=== PATIENT | female | born 1970 | race African-American/Black ===

== ENCOUNTER 2018-07-15 13:41 | Inpatient (IN) | payer BC ==
[~2018-07-15] VITALS: Ht 162.6 cm; Wt 95.0 kg
[2018-07-15 15:32] LABS: Basophils # (auto) 0 uL; Basophils % (auto) 0.4 % (0.0-2.0); Eosinophils # (auto) 0 uL; Eosinophils % (auto) 0.1 % (0.0-7.0); Hematocrit 45.6 % (36.0-46.0); Hemoglobin 15.2 g/dL (12.2-16.2); Lymphocytes # (auto) 0.8 uL; Lymphocytes % (auto) 10.6 % (10.0-50.0); Mean Corpuscular Hgb Conc. 33.3 g/dL (32.0-36.0); Mean Corpuscular Volume 98.9 fL (80.0-100.0); Monocytes # (auto) 0.3 uL; Monocytes % (auto) 3.9 % (0.0-12.0); Neutrophils # (auto) 6.8 uL; Nucleated Red Blood Cells % 0.1 %; Platelet Count (auto) 296 10^3/uL (140-450); Red Blood Cells 4.61 10^6/uL (4.0-5.20); Red Cell Distribution Width 13.4 % (11.8-14.3)
[2018-07-15 15:36] LABS: Albumin 4.3 g/dL (3.4-5.0); Calcium 8.7 mg/dL (8.5-10.1); Potassium 3.4 mmol/L (3.5-5.1)
[2018-07-15 15:41] LABS: BUN/Creatinine Ratio 15.6; Bilirubin, Total 1.7 mg/dL (0.2-1.0); Total Protein 8.8 g/dL (6.4-8.2)
[2018-07-15] MEDS ORDERED: SODIUM CHLORIDE 0.9% 1,000 ML IVB ONE (18:53)
[2018-07-15] MEDS ORDERED: ONDANSETRON HCL 4 MG/2 ML VIAL IV ONE (19:00)
[2018-07-15] MEDS ORDERED: PANTOPRAZOLE 40 MG/10 ML VIAL IV ONE (19:15)
[2018-07-15 20:07] LABS: Magnesium 2.3 mg/dL (1.6-2.6)
[2018-07-15] MEDS ORDERED: cefTRIAXone 1GM/50ML D5W 50 ML IV ONE (20:30)
[2018-07-15] MEDS ORDERED: MORPHINE SULFATE 4 MG/ML SYR/VIAL IV ONE (20:30)
[2018-07-15] MEDS ORDERED: metroNIDAZOLE 500MG/100ML 100 ML IV ONE (20:30)
[2018-07-15] MEDS ORDERED: PROMETHAZINE HCL 25 MG/ML 1ML IV ONE (20:30)
[2018-07-15] MEDS ORDERED: MORPHINE SULF INJ 2 MG/ML SYRINGE 1ML ONE (20:33)
[2018-07-15] MEDS ORDERED: TEMAZEPAM 15 MG CAP PO PRN (21:00)
[2018-07-15] MEDS ORDERED: ACETAMINOPHEN 325 MG TAB PO PRN (21:00)
[2018-07-15] MEDS ORDERED: ONDANSETRON HCL 4 MG/2 ML VIAL IV PRN (21:00)
[2018-07-15] MEDS: SODIUM CHLORIDE 0.9% 1,000 ML IV SCH (21:55)
[2018-07-15] MEDS: metroNIDAZOLE 500MG/100ML 100 ML IV SCH (22:00)
[2018-07-15 23:00] VITALS: BP 127/72
--- NOTE | 2018-07-15 23:00 | NUR ---
PATIENT ARRIVED TO UNIT Patient arrived to unit from ER via stretcher. Patient was able to walk with a steady gait from door to bed. Patient shows no s/s of distress and is A&O X's 4. Patient is c/o pain 7/10 in abdomen area, described as cramping. Will provide medication as ordered. Patient's significant other is at bedside at this moment. Educated patient on POC, to use call light when in need of assistance and oriented patient to the room. Patient verbalized understanding. Bed is in lowest/locked position with side rails up X's 2. Call light is within reach of patient. Will continue to monitor and round hourly.
[2018-07-15] MEDS: HYDROcodone-ACET 5/325MG TAB PO PRN (23:27)
[2018-07-16 04:20] VITALS: BP 91/58
[2018-07-16] MEDS: metroNIDAZOLE 500MG/100ML 100 ML IV SCH ×3 (05:28→22:07)
[2018-07-16 05:49] LABS: Basophils # (auto) 0 uL; Basophils % (auto) 0.5 % (0.0-2.0); Eosinophils # (auto) 0.1 uL; Hematocrit 39.8 % (36.0-46.0); Hemoglobin 13.1 g/dL (12.2-16.2); Lymphocytes # (auto) 1.5 uL; Lymphocytes % (auto) 19.8 % (10.0-50.0); Mean Corpuscular Hemoglobin 32.6 pg (28.0-32.0); Mean Corpuscular Hgb Conc. 32.9 g/dL (32.0-36.0); Mean Corpuscular Volume 99.1 fL (80.0-100.0); Monocytes # (auto) 0.7 uL; Monocytes % (auto) 8.6 % (0.0-12.0); Neutrophils # (auto) 5.4 uL; Neutrophils % (auto) 70.1 % (37.0-80.0); Nucleated Red Blood Cells % 0.2 %; Platelet Count (auto) 263 10^3/uL (140-450); Red Blood Cells 4.02 10^6/uL (4.0-5.20); Red Cell Distribution Width 13.6 % (11.8-14.3); White Blood Cell 7.7 10^3/uL (4.4-10.8)
[2018-07-16] MEDS: HYDROcodone-ACET 5/325MG TAB PO PRN ×3 (05:59→20:49)
[2018-07-16 06:03] LABS: Albumin 3.3 g/dL (3.4-5.0); BUN/Creatinine Ratio 10.1; Calcium 7.8 mg/dL (8.5-10.1); Potassium 3.5 mmol/L (3.5-5.1)
[2018-07-16 06:19] LABS: Bilirubin, Total 1.4 mg/dL (0.2-1.0); Total Protein 7.2 g/dL (6.4-8.2)
[2018-07-16 08:58] VITALS: BP 98/58
[2018-07-16] MEDS: POTASSIUM CHL 20 Meq TABLET PO SCH (09:52)
[2018-07-16] MEDS: SODIUM CHLORIDE 0.9% 1,000 ML IV SCH ×2 (09:52→22:09)
[2018-07-16] MEDS: PANTOPRAZOLE 40 MG/10 ML VIAL IV SCH (09:52)
[2018-07-16] MEDS: cefTRIAXone 1GM/50ML D5W 50 ML IV SCH (09:52)
[2018-07-16 13:00] VITALS: BP 100/53
[2018-07-16 16:56] VITALS: BP 98/57
--- NOTE | 2018-07-16 19:55 | NUR ---
CLOSING NOTE REPORT GIVEN TO VETERINARIAN RN RAHEEL. PATIENT IN BED LOW LOCK POSITION, CALL LIGHT WITHIN REACH. NO S/S OF DISTRESS.
[2018-07-16 20:00] VITALS: BP 101/55
[2018-07-16 21:10] VITALS: BP 101/55
[2018-07-17 05:30] VITALS: BP 110/80
[2018-07-17] MEDS: metroNIDAZOLE 500MG/100ML 100 ML IV SCH ×3 (05:52→21:14)
[2018-07-17 06:13] LABS: Basophils # (auto) 0.1 uL; Eosinophils # (auto) 0.1 uL; Eosinophils % (auto) 0.9 % (0.0-7.0); Hematocrit 36.7 % (36.0-46.0); Hemoglobin 12.3 g/dL (12.2-16.2); Lymphocytes # (auto) 1.8 uL; Lymphocytes % (auto) 31.1 % (10.0-50.0); Mean Corpuscular Hemoglobin 33.3 pg (28.0-32.0); Mean Corpuscular Hgb Conc. 33.4 g/dL (32.0-36.0); Mean Corpuscular Volume 99.5 fL (80.0-100.0); Monocytes # (auto) 0.4 uL; Monocytes % (auto) 7.6 % (0.0-12.0); Neutrophils # (auto) 3.4 uL; Neutrophils % (auto) 59.4 % (37.0-80.0); Platelet Count (auto) 223 10^3/uL (140-450); Red Blood Cells 3.69 10^6/uL (4.0-5.20); Red Cell Distribution Width 13.5 % (11.8-14.3); White Blood Cell 5.7 10^3/uL (4.4-10.8)
[2018-07-17 06:26] LABS: Albumin 2.8 g/dL (3.4-5.0); BUN/Creatinine Ratio 6.1; Calcium 7.3 mg/dL (8.5-10.1); Potassium 3.8 mmol/L (3.5-5.1)
[2018-07-17 06:29] LABS: Total Protein 6.3 g/dL (6.4-8.2)
--- NOTE | 2018-07-17 08:00 | NUR ---
OPENING NOTE PT RESTING IN BED, NO DISTRESS NOTED. CALL LIGHT IN REACH, PT INSTRUCTED TO USE CALL LIGHT PRN.
[2018-07-17 08:35] VITALS: BP 121/76
[2018-07-17] MEDS: POTASSIUM CHL 20 Meq TABLET PO SCH (09:10)
[2018-07-17] MEDS: PANTOPRAZOLE 40 MG/10 ML VIAL IV SCH (09:19)
[2018-07-17] MEDS: cefTRIAXone 1GM/50ML D5W 50 ML IV SCH (09:19)
--- NOTE | 2018-07-17 11:04 | NUR ---
pt heart rate reported as 51, reassessed heart rate. HR 64 and 02 100 on RA. Pt reports she feels fine and just went to the restroom. Pt notified we need a urine sample, sample cup at bedside. Will continue to monitor. Addendum: 07/17/18 at 1147 by DOROTHY RUIZ RN PT IS WEARING ACRYLIC NAILS, HAD TO RE ADJUST PULSE OX TO GET AN ACCURATE READING.
[2018-07-17 11:36] VITALS: BP 109/61
--- NOTE | 2018-07-17 11:45 | NUR ---
LOOKED TO SEE IF PATIENT GI CONSULT CALLED IN. GI CONSULT CALLED IN 07/16 AT 2337. WILL CONTINUE TO MONITOR.
--- NOTE | 2018-07-17 13:17 | NUR ---
PT HR REPORTED 56 ON VITALS SHEET. EKG DONE, PT HR 63, SPOKE WITH DR. MARY ANNE MD AWARE. MANUAL PULSE 63. NO NEW ORDERS. ALSO SAW PT, POC IS ANTIBIOTICS AND GI CONSULT, PT DISCUSSED POC WITH MD, WILL CONTINUE TO MONITOR.
[2018-07-17 13:41] LABS: Urine Bacteria NONE SEEN /hpf (None Seen); Urine Blood Negative /uL (Negative); Urine Specific Gravity 1.006 (1.001-1.035); Urine WBC 1 /hpf (0 - 5)
[2018-07-17] MEDS: SODIUM CHLORIDE 0.9% 1,000 ML IV SCH (14:12)
--- NOTE | 2018-07-17 14:57 | NUR ---
DR. TOBAR SAW PATIENT. RECOMMENDED COLONOSCOPY. PT SAID SHE WOULD " THINK ABOUT IT. " REASSESSED PT AND ASKED HER IF SHE WANTED TO DO THE PROCEDURE. PATIENT REPORTED, " NO, THE DOCTOR GAVE ME THE OPTION FOR IT, BUT IF HE GAVE ME AN OPTION, I DON'T THINK IT'S THAT SERIOUS." WILL CONTINUE TO MONITOR.
--- NOTE | 2018-07-17 15:29 | NUR ---
PATIENT NOTIFIED STOOL SAMPLE NEEDED. PT CONSENTED, SAMPLE CUP AT BEDSIDE.
--- NOTE | 2018-07-17 16:58 | NUR ---
Called pbx and paged Dr. Levin to report pt doesn't want to do colonoscopy. Will continue to monitor.
[2018-07-17 16:59] VITALS: BP 110/70
--- NOTE | 2018-07-17 19:05 | NUR ---
GAVE REPORT TO SCALE MECHANIC. PT RESTING IN BED, NO DISTRESS NOTED. NOC AWARE OF PT HR IN 50'S AND REFUSAL FOR COLONOSCOPY.
[2018-07-17 20:00] VITALS: BP 106/68
[2018-07-17 21:31] VITALS: BP 106/68
[2018-07-18] MEDS: SODIUM CHLORIDE 0.9% 1,000 ML IV SCH (04:19)
[2018-07-18 05:25] VITALS: BP 101/68
[2018-07-18] MEDS: metroNIDAZOLE 500MG/100ML 100 ML IV SCH (05:37)
[2018-07-18 05:58] LABS: Basophils # (auto) 0 uL; Basophils % (auto) 0.7 % (0.0-2.0); Eosinophils # (auto) 0.1 uL; Eosinophils % (auto) 0.9 % (0.0-7.0); Hematocrit 36.6 % (36.0-46.0); Hemoglobin 12.1 g/dL (12.2-16.2); Lymphocytes # (auto) 1.9 uL; Lymphocytes % (auto) 32.3 % (10.0-50.0); Mean Corpuscular Hemoglobin 32.9 pg (28.0-32.0); Mean Corpuscular Hgb Conc. 33.1 g/dL (32.0-36.0); Mean Corpuscular Volume 99.3 fL (80.0-100.0); Monocytes # (auto) 0.4 uL; Monocytes % (auto) 7.2 % (0.0-12.0); Neutrophils # (auto) 3.5 uL; Neutrophils % (auto) 58.9 % (37.0-80.0); Nucleated Red Blood Cells % 0.2 %; Platelet Count (auto) 222 10^3/uL (140-450); Red Blood Cells 3.68 10^6/uL (4.0-5.20); Red Cell Distribution Width 13.1 % (11.8-14.3)
[2018-07-18 06:15] LABS: Calcium 7.5 mg/dL (8.5-10.1); Potassium 3.8 mmol/L (3.5-5.1)
--- NOTE | 2018-07-18 08:26 | NUR ---
OPENING NOTE PT RESTING IN BED, NO DISTRESS NOTED, CALL LIGHT IN REACH. PT REPORTS SHE IS LOOKING FORWARD TO GOING HOME.
[2018-07-18] MEDS: POTASSIUM CHL 20 Meq TABLET PO SCH (09:16)
[2018-07-18 09:18] VITALS: BP 104/61
[2018-07-18] MEDS: PANTOPRAZOLE 40 MG/10 ML VIAL IV SCH (09:22)
[2018-07-18] MEDS: cefTRIAXone 1GM/50ML D5W 50 ML IV SCH (09:22)
--- NOTE | 2018-07-18 11:38 | NUR ---
Nutrition Assessment Notes please see attached link for complete assessment Est. Needs ABW [id number] kcal (20-23 kcal/kgBW), 74-81 gms pro (1.0-1.1 gms/kgBW). Will continue to monitor pertinent labs and reassess nutrient need prn Addendum: 07/18/18 at [address] Amended: Links added.
--- NOTE | 2018-07-18 12:10 | NUR ---
DR LIU CAME TO NURSING STATION AND REPORTS PT IS BEING DISCHARGED. WILL CONTINUE TO MONITOR.
[2018-07-18 12:49] VITALS: BP 103/61
[2018-07-18 13:35] VITALS: BP 103/61
--- NOTE | 2018-07-18 14:50 | NUR ---
Discharge instructions given as ordered. Encourage to follow up with PMD as instructed. All questions and concerns addressed. Patient verbalized understanding. Medication reconciliation form completed and copy given to patient. IV removed with catheter intact, pressure dressing applied. Patient taken to pharmacy via wheelchair with all personal belongings, accompanied by staff. No distress noted at time of departure. Patient prescriptions given to pharmacy. Pharmacy unable to fill. Patient reports took home patient's purse with health insurance information. Patient reports she will come back and fill her prescriptions by 5:30 and is taking an uber home.
== END 2018-07-18 14:30 | disposition home or self-care (01) | DRG 392 ==
LOC: ER 13:41 → OVERFLOW 20:51 → WEST WING 23:02
PROVIDERS: ADMIT Nurse Practitioner; ATTEND Internal Medicine
DX: K52.9 Noninfective gastroenteritis and colitis, unspecified (principal); E66.01 Morbid (severe) obesity due to excess calories; E86.0 Dehydration; E87.6 Hypokalemia; E88.09 Other disorders of plasma-protein metabolism, not elsewhere classified; Z82.49 Family history of ischemic heart disease and other diseases of the circulatory system; Z90.710 Acquired absence of both cervix and uterus; Z68.35 Body mass index [BMI] 35.0-35.9, adult
CPT/HCPCS: 36415; 71045; 74176; 80048; 80053; 81001; 82150; 82270; 83690; 83735; 85025; 87045; 87493; 87899; 94761; 96361; 96365; 96367; 96375; C9113; G0378; J0696; J2405; J3490

== ENCOUNTER 2021-01-10 10:24 | Emergency (ER) | payer BC, OTHER ==
[~2021-01-10] VITALS: Ht 165.1 cm; Wt 89.4 kg
[2021-01-10 12:56] VITALS: BP 170/98
[2021-01-10] MEDS ORDERED: methylPREDNISolone SOD SUCC 125 MG/2 ML VL IM ONE (14:15)
[2021-01-10] MEDS ORDERED: KETOROLAC TROMETH 60MG/2ML VIAL IM ONE (14:15)
[2021-01-10] MEDS: METHOCARBAMOL 500 MG TAB PO ONE ×2 (14:26→14:35)
== END 2021-01-10 16:33 | disposition home or self-care (01) ==
LOC: ER 10:24
DX: M62.838 Other muscle spasm (principal); I10 Essential (primary) hypertension; Z90.710 Acquired absence of both cervix and uterus
CPT/HCPCS: 72125; 96372; 99284; J1885; J2930

== ENCOUNTER 2025-05-07 12:53 | Emergency (ER) | payer MEDICAID, OTHER ==
[~2025-05-07] VITALS: Ht 162.6 cm; Wt 81.8 kg
--- NOTE | 2025-05-07 13:19 | ED.PDOC ---
HPI Comments This is a 55 year old female RAOUL presenting to the ED with chief complaint of palpitations. Patient reports that after breakfast this morning, she begun to experiencing palpitations with associated headache and lightheadedness. Patient relays that she took her BP this morning and it was 160/100. Patient states she took her BP medication this morning. Patient denies any chest pain, SOB, dizziness, N/V, syncope, or abdominal pain. 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 Family History Family History: Reviewed,noncontributory to illness, No family hx of HTN Social History Smoker: Non-Smoker Alcohol: Denies ETOH Use Drugs: Denies Drug Use Lives In: Home Constitutional: denies: chills, diaphoresis, fatigue, fever, malaise, sweats, weakness, others EENTM: denies: blurred vision, double vision, ear bleeding, ear discharge, ear drainage, ear pain, ear ringing, eye pain, eye redness, hearing loss, mouth pain, mouth swelling, nasal discharge, nose bleeding, nose congestion, nose pain, photophobia, tearing, throat pain, throat swelling, voice changes, others Respiratory: denies: cough, hemoptysis, orthopnea, SOB at rest, shortness of breath, SOB with excertion, stridor, wheezing, others Cardiovascular: reports: lightheadedness, palpitations; denies: chest pain, dizzy spells, diaphoresis, Dyspnea on exertion, edema, irregular heart beat, left arm pain, PND, syncope, others Gastrointestinal: denies: abdomen distended, abdominal pain, blood streaked bowels, constipated, diarrhea, dysphagia, difficulty swallowing, hematemesis, melena, nausea, poor appetite, poor fluid intake, rectal bleeding, rectal pain, vomiting, others Genitourinary: denies: abnormal vagina bleeding, burning, dyspareunia, dysuria, flank pain, frequency, hematuria, incontinence, pain, , vagina discharge, urgency, others Neurological: reports: headache; denies: dizziness, fainting, left sided numbness, left sided weakness, numbness, paresthesia, pre-existing deficit, right sided numbness, right sided weakness, seizure, speech problems, tingling, tremors, weakness, others Musculoskeletal: denies: back pain, gout, joint pain, joint swelling, muscle pain, muscle stiffness, neck pain, others Integumetry: denies: bruises, change in color, change in hair/nails, dryness, laceration, lesions, lumps, rash, wounds, others Allergic/Immunocompromised: denies: Difficulty Healing, Frequent Infections, Hives, Itching, others Hematologic/Lymphatic: denies: anemia, blood clots, easy bleeding, easy bruisi ng, swollen glands, others Endocrine: denies: excessive hunger, excessive sweating, excessive thirst, exce ssive urination, flushing, intolerance to cold, intolerance to heat, unexplained weight gain, unexplained weight loss, others Psychiatric: denies: anxiety, bipolar disorder, depression, hopeless, panic disorder, schizophrenia, sleepless, suicidal, others All Other Systems: Reviewed and Negative Physical Exam General Appearance: Moderate Distress, Normal HEENT: Normal ENT Inspection, Pharynx Normal, TMs Normal Neck: Full Range of Motion, Non-Tender, Normal, Normal Inspection Respiratory: Chest Non-Tender, Lungs Clear, No Accessory Muscle Use, No Respiratory Distress, Normal Breath Sounds Cardiovascular: No Edema, No JVD, No Murmur, No Gallop, Normal Peripheral Pulses, Regular Rate/Rhythm Breast Exam: Deferred Gastrointestinal: No Organomegaly, Non Tender, No Pulsatile Mass, Normal Bowel Sounds, Soft Genitalia: Deferred Pelvic: Deferred Rectal: Deferred Extremities: No calf tenderness, Normal capillary refill, Normal inspection, Normal range of motion, Non-tender, No pedal edema Musculoskeletal : Apperance: Normal Neurologic: Alert, vice president of manufacturing II-XII nml as Tested, No Motor Deficits, Normal Affect, Normal Mood, No Sensory Deficits Cerebellar Function: Normal Reflexes: Normal Skin: Dry, Normal Color, Warm Peripheral Pulses: 3+ Radial (R), 3+ Radial (L) Lymphatic: No Adenopathy Was a procedure done? Was a procedure done?: No CP Differential Dx Differential Diagnosis: A-fib, A-Flutter, Angina, Anxiety / Panic Attack, Atrial Dysrhythmia, Electrolyte Disorder X-Ray, Labs, Meds, VS Vital Signs Date Time Temp Pulse Resp B/P (MAP) Pulse Ox O2 Delivery O2 Flow Rate FiO2 05/07/25 15:45 98.2 73 20 129/77 (94) 100 98.2 05/07/25 12:54 98.0 75 18 125/79 98 98.0 Lab Test 05/07/25 14:05 Range/Units White Blood Count 5.4 4.4-10.8 10^3/uL Red Blood Count 4.58 4.0-5.20 10^6/uL Hemoglobin 13.7 12.2-16.2 g/dL Hematocrit 41.2 36.0-46.0 % Mean Corpuscular Volume 89.9 80.0-100.0 fL Mean Corpuscular Hemoglobin 30.0 28.0-32.0 pg Mean Corpuscular Hemoglobin Concent 33.4 32.0-36.0 g/dL Red Cell Distribution Width 12.9 11.8-14.3 % Platelet Count 279 140-450 10^3/uL Mean Platelet Volume 8.4 6.9-10.8 fL Neutrophils (%) (Auto) 69.0 37.0-80.0 % Lymphocytes (%) (Auto) 24.3 10.0-50.0 % Monocytes (%) (Auto) 5.8 0.0-12.0 % Eosinophils (%) (Auto) 0.2 0.0-7.0 % Basophils (%) (Auto) 0.7 0.0-2.0 % Neutrophils # (Auto) 3.7 1.6-8.6 10 ^3/uL Lymphocytes # (Auto) 1.3 0.4-5.4 10 ^3/uL Monocytes # (Auto) 0.3 0-1.3 10 ^3/uL Eosinophils # (Auto) 0 0-0.8 10 ^3/uL Basophils # (Auto) 0 0-0.2 10 ^3/uL Nucleated Red Blood Cells 0.1 % Sodium Level 139 136-145 mmol/L Potassium Level 3.7 3.5-5.1 mmol/L Chloride Level 104 98-107 mmol/L Carbon Dioxide Level 26 20-31 mmol/L Anion Gap 9 5-15 Blood Urea Nitrogen 9 9-23 mg/dL Creatinine 0.89 0.550-1.02 mg/dL Glomerular Filtration Rate Calc 76 >90 mL/min BUN/Creatinine Ratio 10.1 10.0-20.0 Serum Glucose 76 74-106 mg/dL Calcium Level 9.5 8.7-10.4 mg/dL Troponin I High Sensitivity 17 </=34 ng/L Patient alert. Complaining of palpitations. She thought her blood pressure was elevated prior to coming to the ER. Vitals stable. Blood pressure within normal limits. Abdomen is soft nontender. No sign of distress. No leg swelling. No shortness a breath. Saturation pristine on room air. Heart rate within normal limits. Respiratory rate within normal limits. Cardiac marker within normal limits. No acute process. Explained to the patient. Was told to follow up with her primary care physician. Was told to come back if there is any problem. Time of 1ST Reevaluation: 14:16 Reevaluation 1ST: Improved Patient Education/Counseling: Diagnosis, Treatment Family Education/Counseling: No Family Present SEPSIS Sepsis Screen Physician Orders Urinalysis (05/07/25 13:18) Electrocardigram (05/07/25 13:24) Vital Signs Date Time Temp Pulse Resp B/P (MAP) Pulse Ox O2 Delivery O2 Flow Rate FiO2 05/07/25 15:45 98.2 73 20 129/77 (94) 100 98.2 05/07/25 12:54 98.0 75 18 125/79 98 98.0 Laboratory Tests Test 05/07/25 14:05 White Blood Count 5.4 10^3/uL (4.4-10.8) Departure 1 Departure Time of Disposition: 13:23 Impression: Primary Impression: HTN (hypertension) Qualified Codes: I10 - Essential (primary) hypertension Additional Impression: Anxiety Disposition: 01 HOME / SELF CARE / HOMELESS Condition: Good e-Prescriptions No Active Prescriptions or Reported Meds Discharged With: Self Critical Care Note Critical Care Time?: No Stability Stability form required: No Heart Score Heart Score: Heart Score Response (Comments) Value History Moderate Suspicious 1 EKG Normal 0 Age 45-64 1 Risk Factors 1 or 2 risk factors 1 Troponin Normal limit 0 Total 3 I personally scribed for CARLOS TOSCANO MD ([email or web address]) on 05/07/25 at 13:19. Electronically submitted by Jaison Gibson ([email or web address]). CARLOS TOSCANO MD May 07, 2025 13:19
[2025-05-07 14:18] LABS: Hematocrit 41.2 % (36.0-46.0); Hemoglobin 13.7 g/dL (12.2-16.2); Mean Corpuscular Hemoglobin 30.0 pg (28.0-32.0); Mean Corpuscular Volume 89.9 fL (80.0-100.0); Nucleated Red Blood Cells % 0.1 %
[2025-05-07 14:24] LABS: Chloride 104 mmol/L (98-107); Potassium 3.7 mmol/L (3.5-5.1); Sodium 139 mmol/L (136-145)
[2025-05-07 14:25] LABS: Anion Gap 9 (5-15); Calcium 9.5 mg/dL (8.7-10.4); Carbon Dioxide 26 mmol/L (20-31)
[2025-05-07 14:30] LABS: BUN/Creatinine Ratio 10.1 (10.0-20.0); Blood Urea Nitrogen 9 mg/dL (9-23); Glucose 76 mg/dL (74-106)
[2025-05-07 18:00] VITALS: BP 144/81; PULSE 85; RESP 18; TEMP 97.8; O2SAT 98
== END 2025-05-07 18:02 | disposition home or self-care (01) ==
LOC: EDBD 12:53 → ER 12:53 → EDUNIT# 12:53 → ER 18:02
DX: I10 Essential (primary) hypertension (principal); F41.9 Anxiety disorder, unspecified; Z90.710 Acquired absence of both cervix and uterus
CPT/HCPCS: 36415; 80048; 84484; 85025